=== PATIENT | female | born 1975 | race Hispanic/Latino ===

== ENCOUNTER 2018-01-29 10:05 | Outpatient (CLI) | payer OTHER ==
--- NOTE | 2018-01-29 11:15 | MMO ---
BILATERAL MAMMOGRAMS: DATE: 01/29/18 HISTORY: Screening mammography. COMPARISON: 08/23/10. FINDINGS: Scattered fibroglandular densities are again demonstrated. No dominant mass or suspicious calcificati ons. The study was evaluated with the assistance of computer-aided detection. IMPRESSION: BIRADS 1: Negative Suggest routine follow-up. POS: [id number]
== END 2018-01-29 10:06 | disposition home or self-care (01) ==
LOC: SCSMAMMO 10:05
PROVIDERS: ATTEND Family Medicine
DX: Z12.31 Encounter for screening mammogram for malignant neoplasm of breast (principal)
CPT/HCPCS: 77067

== ENCOUNTER 2021-01-10 11:02 | Outpatient (CLI) | payer OTHER | END 2021-01-10 11:03 | disposition home or self-care (01) | LOC: BICMAMMO 11:02 | PROVIDERS: ATTEND Family Medicine | DX: Z12.31 Encounter for screening mammogram for malignant neoplasm of breast (principal) | CPT/HCPCS: 77067 ==